=== PATIENT | female | born 1990 | race Hispanic/Latino ===

== ENCOUNTER 2018-03-12 17:15 | Day surgery (SDC) | payer SELFPAY ==
[2018-03-12 18:23] VITALS: BMI 24.1
--- NOTE | 2018-03-12 19:40 | PDOC.LDHP ---
Labor and Delivery H&P Chief complaint: other (spotting) HPI: 27 y/o G1 at 28w6d, patient of Dr. Mishra, presented after she noted spotting when she wiped after having a difficult bowel movement. She has not had any more bleeding since. Denies LOF, ctx, or decreased FM. ROS neg for HEENT, cv, pulm, GI, , neuro, psych, skin, musculoskeletal or constitutional symptoms other than mentioned above. OB History Details: First Current complications: none Past Medical History: None Current medications: pre- vitamins Previous surgical history: other (dental) Allergies/Adverse Reactions: Allergies Allergy/AdvReac Type Severity Reaction Status Date / Time No Known Allergies Allergy Verified 03/12/18 18:23 Social history: none - Physical Exam Vital signs reviewed and normal: yes General: NAD, resting Lungs: nonlabored breathing Abdomen: gravid Extremeties: no edema FHT: category 1 (150s, mod variability, + accels, ? single variable decel) [place] contractions every: no ctx - Vaginal Exam cm dilated: 0 (No bleeding on SSE) - Assessment 27 y/o G1 at 28w6d with no e/o active bleeding. status reassuring with reactive NST. Bedside US performed to assess EBER, which was 12cm. - Plan -: D/c home with precautions. Advised to keep all appointments.
== END 2018-03-12 19:40 | disposition home or self-care (01) ==
LOC: L&D/OP 17:15
PROVIDERS: ATTEND Obstetrics & Gynecology
DX: O26.853 Spotting complicating pregnancy, third trimester (principal); Z3A.28 28 weeks gestation of pregnancy; Z79.899 Other long term (current) drug therapy
CPT/HCPCS: 76815; 99283

== ENCOUNTER 2018-05-21 23:50 | Day surgery (SDC) | payer BC ==
[2018-05-22 00:25] VITALS: BMI 26.5
[2018-05-22] MEDS ORDERED: Butorphanol Tartrate 1 MG/ML VIAL IM PRN (00:42)
[2018-05-22] MEDS ORDERED: Promethazine HCl 25 MG/ML VIAL IM/IV PRN (00:43)
--- NOTE | 2018-05-22 00:45 | PDOC.LDHP ---
Labor and Delivery H&P HPI: Patient of Dr love CC: Here for possible CTX Location: Triage HPI: 27 yo G1 with irregular CTX, no LOF, no VB, good FM. Was 1cm in office last . Review of Systems: Complete ROS completed and as per HPI Dating criteria: last menstrual period Grav: 1 Para: 0 Current complications: none Abnormal US findings: No Current medications: pre- vitamins Previous surgical history: other (Oral surgery) Allergies/Adverse Reactions: Allergies Allergy/AdvReac Type Severity Reaction Status Date / Time No Known Allergies Allergy Verified 05/22/18 00:27 - Physical Exam Vital signs reviewed and normal: yes (129/65) General: NAD Heart: RRR Lungs: CTAB Abdomen: gravid Extremeties: no edema FHT: category 1 [place] contractions every: every 3-5 minutes - Vaginal Exam cm dilated: 1 (BOWI) Effacement: 75% Station: -1 - Assessment Latent labor at full term, GBS negative. - Plan Plan: observation in L&D (2 hour obs in L&D; offer pain meds. BPs ok.)
--- NOTE | 2018-05-22 07:12 | PDOC.EVN ---
Event Note - Event Note Event Note: Post Discharge note: Patient was rechecked at 4AM...cervix was without vast change (2cm). No ROM, and reactive strip. She was sent home to follow up as outpatient. Late entry as I was occupied at the time of DC decision.
== END 2018-05-22 04:42 | disposition home or self-care (01) ==
LOC: L&D/OP 23:50
PROVIDERS: ATTEND Obstetrics & Gynecology
DX: O60.00 Preterm labor without delivery, unspecified trimester (principal); Z79.899 Other long term (current) drug therapy
CPT/HCPCS: 96372; 99283; J0595; J2550

== ENCOUNTER 2018-05-22 19:08 | Inpatient (IN) | payer BC ==
[2018-05-22 19:47] VITALS: BMI 26.5
[2018-05-22] MEDS ORDERED: Ondansetron PF 4 MG/2 ML Vial IVP PRN (20:04)
[2018-05-22] MEDS ORDERED: Lidocaine 1% (PF) 30 ML VIAL SC PRN (20:04)
[2018-05-22] MEDS ORDERED: NS / Oxytocin 40 units/1000ml 1,000 ML IV PRN (20:04)
[2018-05-22] MEDS ORDERED: HYDROcodone/Acetaminophen 5/325 mg Tablet PO PRN ×2 (20:04)
[2018-05-22] MEDS ORDERED: Ibuprofen 800 MG TAB PO PRN (20:04)
[2018-05-22] MEDS ORDERED: Lactated Ringer's 1,000 ML IV SCH (20:15)
[2018-05-22 20:19] LABS: Hemoglobin 12.6 g/dL (12.0-16.0); Mean Corpuscular HGB CONC 34.7 g/dL (32.0-36.0); Mean Corpuscular Hemoglobin 33.3 pg (27.0-31.0); Mean Corpuscular Volume 95.9 fL (78.0-98.0); Mean Platelet Volume 8.9 fL (7.4-10.4); Platelet Count 228 thou/uL (130-400); RBC Distribution Width 11.5 % (11.5-14.5); White Blood Cell (WBC) Count 9.7 thou/uL (4.8-10.8)
[2018-05-22] MEDS ORDERED: Lidocaine 1.5% w/Epi 1:200K 30 ML VIAL (Epid Use) ONE (20:32)
[2018-05-22] MEDS: Fentanyl 4 mcg/Bup 0.1% Cadd 100 ML ONE (20:40)
[2018-05-22 20:51] LABS: HBSAg Index 0.23 S/CO (0-0.99); Hep B Surf Ag Non-Reactive S/CO (NonReactive); Syphilis Antibody Nonreactive (Nonreactive); Syphilis Antibody Index 0.05 S/CO (<1.00 Non-Reactive)
[2018-05-22] MEDS: Lactated Ringer's 1,000 ML IV SCH (22:00)
[2018-05-23] MEDS: Fentanyl 4 mcg/Bup 0.1% Cadd 100 ML ONE (04:42)
[2018-05-23] MEDS ORDERED: Fentanyl 4 mcg/Bup 0.1% Cadd 100 ML ONE (05:21)
--- NOTE | 2018-05-23 07:02 | DN ---
DATE OF PROCEDURE: 05/23/2018 The patient delivered a male infant on 05/23/2018 at 0508 hours by an uncomplicated term spontaneous vaginal delivery at 39 weeks and 0 days. Apgars were 7 and 9. Estimated weight unavailable at the time of dictation. Placenta delivered spontaneously followed by Pitocin infusion. Quantitative blood loss was 353 mL. There were no lacerations. Dr. Law Mccoy was the delivering physician. Counts were correct. Mother and baby were stable in the room in the immediate . Job ID: [id number]
[2018-05-23] MEDS ORDERED: Bisacodyl 10 MG SUPP PR PRN (07:45)
[2018-05-23] MEDS ORDERED: Ondansetron PF 4 MG/2 ML Vial IVP PRN (07:45)
[2018-05-23] MEDS ORDERED: Milk Of Magnesia 30 ML UDCUP PO PRN (07:45)
[2018-05-23] MEDS ORDERED: Adacel (T-DAP) 0.5 ML SYRINGE IM ONE (07:45)
[2018-05-23] MEDS ORDERED: Lanolin Ointment 7 GM TUBE TOP PRN (07:45)
[2018-05-23] MEDS ORDERED: Preparation H Ointment 28 GM TUBE PR PRN (07:45)
[2018-05-23] MEDS ORDERED: NS / Oxytocin 40 units/1000ml 1,000 ML IV SCH (07:45)
[2018-05-23] MEDS ORDERED: Benzocaine/Menthol 20-0.5% 60 ML CAN TOP PRN (07:45)
[2018-05-23] MEDS: Acetaminophen/Codeine 30-300mg Tablet PO PRN ×2 (09:43→14:12)
[2018-05-23] MEDS: Prenatal Vitamin 1 TAB PO SCH (09:44)
[2018-05-23] MEDS: Ferrous Sulfate 325 MG TAB PO SCH (09:45)
[2018-05-23] MEDS: Docusate Calcium (SURFAK) 240 MG CAP PO SCH ×2 (09:45→20:11)
[2018-05-23] MEDS: Ibuprofen 800 MG TAB PO SCH ×2 (14:13→20:11)
--- NOTE | 2018-05-24 05:25 | PDOC.PP ---
Post Progress Note Post Day #: 1 Subjective: Unable to void yesterday, mackenzie placed last night. Otherwise without complaints. PO intake tolerated: yes Flatus: yes Ambulation: yes Vital Signs (12 hours) Temp Pulse Resp BP Pulse Ox 05/23/18 20:00 98.5 F 75 18 115/60 100 Weight Weight 145 lb - Physical Examination General: NAD Respiratory: non-labored breathing Abdominal: lochia (normal), no distention, appropriately TTP Fundus firm & at: U-3 Neurological: no gross focal deficits Psychiatric: A&Ox3, normal affect Result Diagrams: 05/22/18 20:11 Additional Labs: Post Labs Blood Type A POSITIVE 05/22/18 20:11 Hep Bs Antigen Non-Reactive S/CO (NonReactive) 05/22/18 20:11 (1) (spontaneous vaginal delivery) Code(s): O80 - ENCOUNTER FOR FULL-TERM UNCOMPLICATED DELIVERY Status: Acute (2) Urinary retention Code(s): R33.9 - RETENTION OF URINE, UNSPECIFIED Status: Acute - Assessment/Plan Will d/c mackenzie today for attemped voiding. Continue routine management.
[2018-05-24] MEDS: Ferrous Sulfate 325 MG TAB PO SCH ×3 (06:02→16:22)
[2018-05-24] MEDS: Ibuprofen 800 MG TAB PO SCH ×3 (06:02→21:33)
[2018-05-24 06:22] LABS: Hemoglobin 8.7 g/dL (12.0-16.0); Mean Corpuscular HGB CONC 34.4 g/dL (32.0-36.0); Mean Corpuscular Hemoglobin 33.3 pg (27.0-31.0); Mean Corpuscular Volume 96.8 fL (78.0-98.0); Platelet Count 174 thou/uL (130-400); RBC Distribution Width 11.4 % (11.5-14.5); Red Blood Cell (RBC) Count 2.62 mill/uL (4.20-5.40)
--- NOTE | 2018-05-24 07:54 | PDOC.PP ---
Post Progress Note Post Day #: 1 Subjective: Working on ...Has to have mackenzie placed for urinary retention. baby doing well. PO intake tolerated: yes Flatus: yes Ambulation: yes Vital Signs (12 hours) Temp Pulse Resp BP Pulse Ox 05/24/18 04:00 97.8 F 78 18 110/60 05/23/18 20:00 98.5 F 75 18 115/60 100 Weight Weight 145 lb - Physical Examination Abdominal: + bowel sounds, lochia, no distention, appropriately TTP Result Diagrams: 05/24/18 05:24 Additional Labs: Post Labs Blood Type A POSITIVE 05/22/18 20:11 Hep Bs Antigen Non-Reactive S/CO (NonReactive) 05/22/18 20:11 - Assessment/Plan day 1-2--urinary retention. D/c mackenzie and observe voids. D/c for AM planned...
[2018-05-24] MEDS: Prenatal Vitamin 1 TAB PO SCH (09:44)
[2018-05-24] MEDS: Docusate Calcium (SURFAK) 240 MG CAP PO SCH ×2 (09:44→21:33)
[2018-05-24] MEDS: Lactated Ringer's 1,000 ML IV SCH (14:58)
[2018-05-25] MEDS: Ibuprofen 800 MG TAB PO SCH ×2 (05:37→13:45)
--- NOTE | 2018-05-25 08:01 | PDOC.PP ---
Post Progress Note Post Day #: 2. PO intake tolerated: yes Flatus: yes Ambulation: yes Vital Signs (12 hours) Temp Pulse Resp BP Pulse Ox 05/24/18 23:08 98.7 F 75 18 115/61 98 05/24/18 20:10 98.2 F 86 20 121/69 99 Weight Weight 145 lb - Physical Examination Abdominal: + bowel sounds, lochia, no distention, appropriately TTP Extremities: negative homans (B) Result Diagrams: 05/24/18 05:24 Additional Labs: Post Labs Blood Type A POSITIVE 05/22/18 20:11 Hep Bs Antigen Non-Reactive S/CO (NonReactive) 05/22/18 20:11 - Assessment/Plan post day 2 from . Urinary retention..Mackenzie catheter removed this AM. observe voiding trials. If not adequate, reinsert mackenzie and let bladder rest for 72 hours...
[2018-05-25] MEDS: Prenatal Vitamin 1 TAB PO SCH (09:02)
[2018-05-25] MEDS: Docusate Calcium (SURFAK) 240 MG CAP PO SCH (09:02)
[2018-05-25] MEDS: Ferrous Sulfate 325 MG TAB PO SCH (09:02)
[2018-05-25] MEDS ORDERED: Sodium Chloride 0.9% 10 ML ONE (10:52)
[2018-05-25] MEDS ORDERED: Ondansetron ODT 4 MG TAB PO SCH (11:00)
[2018-05-25 12:14] VITALS: BP 119/75; TEMP 98.5
== END 2018-05-25 16:00 | disposition home or self-care (01) | DRG 807 ==
LOC: L&D/OP 19:08 → L&D 21:45 → 3SW 05-23 08:26
PROVIDERS: ADMIT Obstetrics & Gynecology; ATTEND Obstetrics & Gynecology
PROC: 10E0XZZ Delivery of Products of Conception, External Approach (ICD-10-PCS; principal; 2018-05-23)
PROC: 0T9B70Z Drainage of Bladder with Drainage Device, Via Natural or Artificial Opening (ICD-10-PCS; 2018-05-24)
DX: O99.89 Other specified diseases and conditions complicating pregnancy, childbirth and the puerperium (principal); Z37.0 Single live birth; Z3A.39 39 weeks gestation of pregnancy; R33.9 Retention of urine, unspecified
CPT/HCPCS: 36415; 85027; 86780; 86850; 86900; 86901; 87340; 96372; 99283; J0595; J2001; J2405; J2550; Q0162

== ENCOUNTER 2019-05-27 00:16 | Emergency (ER) | payer BC ==
[2019-05-27 00:46] LABS: #Basophils 0.1 thou/uL (0.0-0.2); #Eosinphils 0.5 thou/uL (0.0-0.7); #Lymphocytes 2.6 thou/uL (1.20-3.40); #Monocytes 0.3 thou/uL (0.11-0.59); #Neutrophils 4.9 thou/uL (1.40-6.50); %Eosinophils 6.4 % (0.0-10.0); %Lymphocytes 30.5 % (21.0-51.0); %Monocytes 3.6 % (0.0-10.0); %Neutrophils 58.5 % (42.0-75.0); Hemoglobin 14.1 g/dL (12.0-16.0); Mean Corpuscular HGB CONC 33.8 g/dL (32.0-36.0); Mean Corpuscular Hemoglobin 32.1 pg (27.0-31.0); Mean Corpuscular Volume 94.8 fL (78.0-98.0); Platelet Count 214 thou/uL (130-400); RBC Distribution Width 10.8 % (11.5-14.5); White Blood Cell (WBC) Count 8.4 thou/uL (4.8-10.8)
[2019-05-27 00:59] LABS: Bilirubin Negative (Negative); Blood, Urine Negative (Negative); Clarity Clear (Clear); Glucose, Urine (Dipstick) Normal (Negative); Leukocyte Negative Leu/uL (Negative); Nitrite Negative (Negative); Protein, Urine (Dipstick) Negative (Neg-Trace); Urobilinogen Normal mg/dL (Less than 2)
[2019-05-27 01:01] LABS: Pregnancy Test - Urine (BHCG) Negative (Negative); Pregu Control Background? CLEAR/WHITE (CLR/WHITE); Pregu Control Bar Appear? YES (CONTROL BAR); Specific Gravity 1.012 (1.002-1.036)
[2019-05-27 01:07] LABS: ALT (SGPT) 14 U/L (8-55); AST (SGOT) 24 U/L (5-34); Albumin 4.7 g/dL (3.5-5.0); Alkaline Phosphatase 79 U/L (40-110); Anion Gap 15 mmol/L (10-20); BUN (Urea Nitrogen) 11 mg/dL (7.0-18.7); Bilirubin, Total 0.2 mg/dL (0.2-1.2); Calc. Creatinine Clearance 0 mL/min (70-130); Calcium 9.5 mg/dL (7.8-10.44); Carbon Dioxide 22 mmol/L (22-29); Chloride 106 mmol/L (98-107); Estimated GFR-MDRD 86; Globulin 3.4 g/dL (2.4-3.5); Glucose 93 mg/dL (70-105); Potassium 4.6 mmol/L (3.5-5.1); Protein, Total 8.1 g/dL (6.0-8.3); Sodium 138 mmol/L (136-145)
== END 2019-05-27 01:55 | disposition home or self-care (01) ==
LOC: ERS 00:16
DX: R10.31 Right lower quadrant pain (principal); R10.32 Left lower quadrant pain
CPT/HCPCS: 80053; 81003; 81025; 85025; 99283